=== PATIENT | male | born 1985 | race African-American/Black ===

== ENCOUNTER 2018-11-08 02:35 | Emergency (ER) | payer SELFPAY ==
[~2018-11-08] VITALS: Ht 177.8 cm; Wt 88.5 kg
[2018-11-08] MEDS ORDERED: NKM (02:46)
[2018-11-08 02:50] VITALS: BP 145/93
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
[2018-11-08] MEDS ORDERED: Bacitracin Oint UD TOPIC ONE ×2 (03:15→03:22)
[2018-11-08] MEDS ORDERED: AUGMENTIN 875-1 EAC1 ORAL (03:19)
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
[2018-11-08 03:32] VITALS: BP 141/90
--- NOTE | 2018-11-08 03:32 | NUR ---
ER DISCHARGE NOTE: Patient is cleared to be discharged per Dr. Celaya. X-ray done, dressing applied to right hand. Pt is A/O x4 on room air with stable vital signs. Pt was given dc and prescription instructions, pt was able to verbalize understanding, pt id band removed . pt is able to ambulate with steady gait, pt took all belongings.
--- NOTE | 2018-11-08 04:02 | Diagnostic Imaging Report ---
EXAM: XR Right Hand Complete, 3 or More Views CLINICAL HISTORY: Right hand PAIN TECHNIQUE: Frontal, lateral and oblique views of the right hand. COMPARISON: none FINDINGS: Bones/joints: Unremarkable. No acute fracture. No dislocation. Soft tissues: Unremarkable. No radiopaque foreign body. IMPRESSION: Normal right hand x-rays.
== END 2018-11-08 03:32 | disposition home or self-care (01) ==
LOC: EMR 03:15
DX: S60.412A Abrasion of right middle finger, initial encounter (principal); S60.414A Abrasion of right ring finger, initial encounter; S60.416A Abrasion of right little finger, initial encounter; Y04.2XXA Assault by strike against or bumped into by another person, initial encounter; Y92.89 Other specified places as the place of occurrence of the external cause
CPT/HCPCS: 99283